=== PATIENT | female | born 1950 | race Caucasian/White ===

== ENCOUNTER 2017-10-13 23:53 | Observation (INO) | payer MEDICARE, BC ==
[~2017-10-13] VITALS: Ht 160 cm; Wt 72.6 kg
[~2017-10-13 23:53] MED LIST: ATARAX25 MG ORAL; ATORVASTATIN CA20 MG ORAL; CATAPRES0.1 MG ORAL; COZAAR50 MG ORAL; NORCO 5-325 TA1 EACH ORAL; PRILOSEC OTC20 MG PO; TYLENOL ARTHRI650 M1 PO; ZOLPIDEM TARTRA10 MG ORAL
[2017-10-14] MEDS ORDERED: Metoprolol 5mg/5ml Inj IVP ONE (00:45)
[2017-10-14 00:54] LABS: BASOPHILS % (AUTO) 1.1 % (0.0-2.0); EOSINOPHILS % (AUTO) 0.7 % (0.0-3.0); HEMATOCRIT 39.4 % (37.0-47.0); HEMOGLOBIN 13.6 G/DL (12.0-16.0); LYMPHOCYTES % (AUTO) 30.6 % (20.0-45.0); MEAN CORPUSCULAR VOLUME 86 FL (80-99); MONOCYTES % (AUTO) 8.5 % (1.0-10.0); NEUTROPHILS % (AUTO) 59.1 % (45.0-75.0); PLATELET COUNT 341 K/UL (150-450); RED CELL DISTRIBUTION WIDTH 13.4 % (11.6-14.8); WHITE BLOOD COUNT 9.5 K/UL (4.8-10.8)
[2017-10-14 01:15] LABS: ANION GAP 11 mmol/L (5-15); BLOOD UREA NITROGEN 17 mg/dL (7-18); CALCIUM 9.2 MG/DL (8.5-10.1); CARBON DIOXIDE 23 MMOL/L (21-32); CHLORIDE 103 MMOL/L (98-107); CREATININE 1.2 MG/DL (0.55-1.30); POTASSIUM 3.8 MMOL/L (3.5-5.1); SODIUM 137 MMOL/L (136-145)
[2017-10-14] MEDS ORDERED: MULTIVITAMINS1 EAC2 ORAL (01:21)
[2017-10-14] MEDS ORDERED: TACROLIMUS1 MG PO (01:21)
[2017-10-14] MEDS ORDERED: AMBIEN5 MG ORAL (01:21)
[2017-10-14] MEDS ORDERED: IMODIUM MULTI-1 EACH PO (01:21)
[2017-10-14] MEDS ORDERED: METOPROLOL TAR100 M1 ORAL (01:21)
[2017-10-14] MEDS ORDERED: evista (01:21)
[2017-10-14] MEDS ORDERED: CRINONE1.45 G1 TOPIC (01:21)
[2017-10-14] MEDS ORDERED: HYDROXYZINE (01:21)
[2017-10-14] MEDS ORDERED: ASPIR 8181 MG ORAL (01:21)
[2017-10-14] MEDS ORDERED: PREDNISONE2.5 MG ORAL (01:21)
[2017-10-14] MEDS ORDERED: CRESTOR10 M2 ORAL (01:21)
[2017-10-14] MEDS ORDERED: ADALAT10 MG ORAL (01:21)
[2017-10-14] MEDS ORDERED: COQ-10100 M1 PO (01:21)
[2017-10-14] MEDS ORDERED: PANTOPRAZOLE SO40 MG ORAL (01:21)
[2017-10-14] MEDS ORDERED: METOPROLOL TAR100 MG ORAL (01:21)
[2017-10-14 01:32] LABS: ALANINE AMINOTRANSFERASE 17 U/L (12-78); ALBUMIN 3.8 G/DL (3.4-5.0); ALKALINE PHOSPHATASE 50 U/L (46-116); ASPARTATE AMINO TRANSFERASE 18 U/L (15-37); BILIRUBIN,TOTAL 0.4 MG/DL (0.2-1.0); CKMB 0.9 NG/ML (0.0-3.6); CREATINE KINASE 71 U/L (26-308)
[2017-10-14 01:38] VITALS: BP 142/76
[2017-10-14] MEDS ORDERED: Sodium Chloride 500ML 500 ML IV ONE (02:15)
--- NOTE | 2017-10-14 02:37 | Emergency Room Report ---
History of Present Illness General Chief Complaint: Chest Pain Source: Patient, EMS Present Illness HPI Patient is a 67-year-old female brought in by EMS after increased chest discomfort. Patient had been given aspirin the in the field as well as nitroglycerin 2 with resolution of her chest pain. Patient had onset during moderate exertion. The pain was resolved after approximately one hour. The patient prior history of renal transplant and had been taking blood pressure medications. Allergies: Coded Allergies: IODINE (Verified Allergy, Unknown, 10/13/17) PENICILLINS (Verified Allergy, Unknown, 03/07/14) Patient History Past Medical History: see triage record Last Menstrual Period: none Reviewed Nursing Documentation: PMH: Agreed; PSxH: Agreed Nursing Documentation-PMH Hx Hypertension: Yes Hx Asthma: Yes Review of Systems All Other Systems: negative except mentioned in HPI Physical Exam Vital Signs Date Time Temp Pulse Resp B/P (MAP) Pulse Ox O2 Delivery O2 Flow Rate FiO2 10/13/17 23:56 98.2 112 18 134/88 94 Room Air 98.2 Sp02 EP Interpretation: reviewed, normal General Appearance: normal inspection, well appearing, no apparent distress, alert, GCS 15, non-toxic, Chronically Ill Head: atraumatic ENT: normal ENT inspection, hearing grossly normal, normal voice Neck: normal inspection, full range of motion, supple, no bony tend Respiratory: normal inspection, lungs clear, normal breath sounds, no respiratory distress, no retraction, no wheezing Cardiovascular #1: regular rate, rhythm, no edema Gastrointestinal: normal inspection, normal bowel sounds, non tender, soft, no guarding, no hernia Genitourinary: no CVA tenderness Musculoskeletal: normal inspection, back normal, normal range of motion Neurologic: normal inspection, alert, oriented x3, responsive, rail track layer III-XII nml as tested, motor strength/tone normal, speech normal Psychiatric: normal inspection, judgement/insight normal, mood/affect normal Skin: normal inspection, normal color, no rash Medical Decision Making Diagnostic Impression: Primary Impression: Chest pain Additional Impressions: ACS (acute coronary syndrome) Renal transplant recipient Hypertension ER Course Patient presented for chest pain.Differential diagnosis included but was not limited to acute coronary syndrome, pulmonary embolism, pneumonia, aortic dissection, shingles, pneumothorax, aortic dissection, esophageal rupture, pericarditis. Because of complexity of patient's case laboratory testing and imaging studies were ordered. The laboratory testing showed initially normal troponin. EKG interpreted by me showed normal sinus rhythm without acute ST or T wave changes. The patient was noted to be pain-free while in emergency department and was given metoprolol IV as well as the Prograf for the renal transplant. The patient was noted to have slightly elevated creatinine compared to her baseline. The patient was given hydroxyzine for her interstitial cystitis. The reported the patient had recently been started on Norvasc. Dr. Yon Landa was contacted for inpatient management due to the previous admission Labs Test 10/14/17 00:30 White Blood Count 9.5 K/UL (4.8-10.8) Red Blood Count 4.60 M/UL (4.20-5.40) Hemoglobin 13.6 G/DL (12.0-16.0) Hematocrit 39.4 % (37.0-47.0) Mean Corpuscular Volume 86 FL (80-99) Mean Corpuscular Hemoglobin 29.7 PG (27.0-31.0) Mean Corpuscular Hemoglobin Concent 34.6 G/DL (32.0-36.0) Red Cell Distribution Width 13.4 % (11.6-14.8) Platelet Count 341 K/UL (150-450) Mean Platelet Volume 5.6 FL (6.5-10.1) Neutrophils (%) (Auto) 59.1 % (45.0-75.0) Lymphocytes (%) (Auto) 30.6 % (20.0-45.0) Monocytes (%) (Auto) 8.5 % (1.0-10.0) Eosinophils (%) (Auto) 0.7 % (0.0-3.0) Basophils (%) (Auto) 1.1 % (0.0-2.0) Prothrombin Time 10.4 SEC (9.30-11.50) Prothromb Time International Ratio 1.0 (0.9-1.1) Activated Partial Thromboplast Time 27 SEC (23-33) Sodium Level 137 MMOL/L (136-145) Potassium Level 3.8 MMOL/L (3.5-5.1) Chloride Level 103 MMOL/L (98-107) Carbon Dioxide Level 23 MMOL/L (21-32) Anion Gap 11 mmol/L (5-15) Blood Urea Nitrogen 17 mg/dL (7-18) Creatinine 1.2 MG/DL (0.55-1.30) Estimat Glomerular Filtration Rate 44.8 mL/min (>60) Glucose Level 121 MG/DL (74-106) Calcium Level 9.2 MG/DL (8.5-10.1) Total Bilirubin 0.4 MG/DL (0.2-1.0) Aspartate Amino Transf (AST/SGOT) 18 U/L (15-37) Alanine Aminotransferase (ALT/SGPT) 17 U/L (12-78) Alkaline Phosphatase 50 U/L (46-116) Total Creatine Kinase 71 U/L (26-308) Creatine Kinase MB 0.9 NG/ML (0.0-3.6) Creatine Kinase MB Relative Index 1.2 Troponin I 0.000 ng/mL (0.000-0.056) Pro-B-Type Natriuretic Peptide 401 pg/mL (0-125) Total Protein 7.5 G/DL (6.4-8.2) Albumin 3.8 G/DL (3.4-5.0) Globulin 3.7 g/dL Albumin/Globulin Ratio 1.0 (1.0-2.7) Lipase 430 U/L (73-393) EKG Diagnostic Results Rate: normal Rhythm: NSR ST Segments: no acute changes Last Vital Signs Date Time Temp Pulse Resp B/P (MAP) Pulse Ox O2 Delivery O2 Flow Rate FiO2 10/14/17 01:38 98.2 75 19 142/76 99 Room Air 98.2 Status: unchanged Disposition: XFER [facility] Condition: Serious Referrals: Yon Landa MD (PCP) Drew Olson MD Oct 14, 2017 02:37
[2017-10-14] MEDS ORDERED: HydrOXYzine tab 25mg tab ORAL ONE (02:45)
[2017-10-14 03:12] VITALS: BP 146/66
[2017-10-14 03:29] LABS: APPEARANCE,URINE CLEAR; BILIRUBIN, URINE NEGATIVE (NEGATIVE); COLOR,URINE PALE YELLOW; GLUCOSE, URINE (UA) NEGATIVE (NEGATIVE); KETONES,URINE NEGATIVE (NEGATIVE); LEUKOCYTE ESTERASE ,URINE 1+ (NEGATIVE); NITRITE,URINE NEGATIVE (NEGATIVE); PH,URINE 6 (4.5-8.0); PROTEIN,URINE NEGATIVE (NEGATIVE); UROBILINOGEN,URINE NORMAL MG/DL (0.0-1.0)
[2017-10-14 04:00] VITALS: BP 146/66
[2017-10-14] MEDS ORDERED: Zolpidem 5mg tab ORAL PRN (04:15)
[2017-10-14] MEDS ORDERED: Loperamide 2mg cap ORAL PRN (05:00)
[2017-10-14] MEDS ORDERED: Norco 5mg/325mg tab ORAL PRN (06:44)
[2017-10-14 08:00] VITALS: BP 152/85
[2017-10-14] MEDS ORDERED: Aspirin EC 81mg tab ORAL SCH (09:00)
[2017-10-14] MEDS ORDERED: NIFEdipine 10mg cap ORAL SCH (09:00)
[2017-10-14] MEDS: Metoprolol 25mg tab ORAL SCH ×2 (09:05→09:10)
[2017-10-14 12:00] VITALS: BP 146/75
--- NOTE | 2017-10-14 12:29 | Diagnostic Imaging Report ---
Indication: Chest pain Comparison: 11/03/2012 A single view chest radiograph was obtained. Findings: Left hemidiaphragm is elevated. There is mild left basal atelectasis. Lungs are clear otherwise. Heart size is normal. The bones are osteopenic. IMPRESSION: Left basal atelectasis and volume loss
--- NOTE | 2017-10-14 13:28 | Cardiology Progress Note ---
Assessment/Plan Assessment/Plan full note dicateed chronci abn ekg cp coranry artery calcification s/ renal tx repeat echo home if neg [id number] Objective Last 24 Hour Vital Signs Date Time Temp Pulse Resp B/P (MAP) Pulse Ox O2 Delivery O2 Flow Rate FiO2 10/14/17 08:00 97.5 89 21 152/85 95 Room Air 97.5 10/14/17 04:00 98.1 92 22 146/66 96 Room Air 98.1 10/14/17 04:00 92 10/14/17 03:12 98.2 81 19 146/66 99 Room Air 98.2 10/14/17 03:10 98.2 75 19 142/76 99 Room Air 98.2 10/14/17 01:38 98.2 75 19 142/76 99 Room Air 98.2 10/14/17 01:35 102 140/66 10/14/17 00:36 112 18 Room Air 10/13/17 23:56 98.2 112 18 134/88 94 Room Air 98.2 Intake and Output 10/13/17 10/14/17 19:00 07:00 Intake Total 120 ml Balance 120 ml Intake Oral 120 ml # Voids 1 Laboratory Tests Test 10/14/17 00:30 10/14/17 03:00 10/14/17 11:06 White Blood Count 9.5 K/UL (4.8-10.8) Red Blood Count 4.60 M/UL (4.20-5.40) Hemoglobin 13.6 G/DL (12.0-16.0) Hematocrit 39.4 % (37.0-47.0) Mean Corpuscular Volume 86 FL (80-99) Mean Corpuscular Hemoglobin 29.7 PG (27.0-31.0) Mean Corpuscular Hemoglobin Concent 34.6 G/DL (32.0-36.0) Red Cell Distribution Width 13.4 % (11.6-14.8) Platelet Count 341 K/UL (150-450) Mean Platelet Volume 5.6 FL (6.5-10.1) L Neutrophils (%) (Auto) 59.1 % (45.0-75.0) Lymphocytes (%) (Auto) 30.6 % (20.0-45.0) Monocytes (%) (Auto) 8.5 % (1.0-10.0) Eosinophils (%) (Auto) 0.7 % (0.0-3.0) Basophils (%) (Auto) 1.1 % (0.0-2.0) Prothrombin Time 10.4 SEC (9.30-11.50) Prothromb Time International Ratio 1.0 (0.9-1.1) Activated Partial Thromboplast Time 27 SEC (23-33) Sodium Level 137 MMOL/L (136-145) Potassium Level 3.8 MMOL/L (3.5-5.1) Chloride Level 103 MMOL/L (98-107) Carbon Dioxide Level 23 MMOL/L (21-32) Anion Gap 11 mmol/L (5-15) Blood Urea Nitrogen 17 mg/dL (7-18) Creatinine 1.2 MG/DL (0.55-1.30) Estimat Glomerular Filtration Rate 44.8 mL/min (>60) Glucose Level 121 MG/DL (74-106) H Calcium Level 9.2 MG/DL (8.5-10.1) Total Bilirubin 0.4 MG/DL (0.2-1.0) Aspartate Amino Transf (AST/SGOT) 18 U/L (15-37) Alanine Aminotransferase (ALT/SGPT) 17 U/L (12-78) Alkaline Phosphatase 50 U/L (46-116) Total Creatine Kinase 71 U/L (26-308) Creatine Kinase MB 0.9 NG/ML (0.0-3.6) Creatine Kinase MB Relative Index 1.2 Troponin I 0.000 ng/mL (0.000-0.056) 0.008 ng/mL (0.000-0.056) 0.008 ng/mL (0.000-0.056) Pro-B-Type Natriuretic Peptide 401 pg/mL (0-125) H Total Protein 7.5 G/DL (6.4-8.2) Albumin 3.8 G/DL (3.4-5.0) Globulin 3.7 g/dL Albumin/Globulin Ratio 1.0 (1.0-2.7) Lipase 430 U/L (73-393) H Urine Color Pale yellow Urine Appearance Clear Urine pH 6 (4.5-8.0) Urine Specific [place] 1.010 (1.005-1.035) Urine Protein Negative (NEGATIVE) Urine Glucose (UA) Negative (NEGATIVE) Urine Ketones Negative (NEGATIVE) Urine Occult Blood Negative (NEGATIVE) Urine Nitrite Negative (NEGATIVE) Urine Bilirubin Negative (NEGATIVE) Urine Urobilinogen Normal MG/DL (0.0-1.0) Urine Leukocyte Esterase 1+ (NEGATIVE) H Urine RBC 0-2 /HPF (0 - 2) Urine WBC 15-20 /HPF (0 - 2) H Urine Squamous Epithelial Cells Few /LPF (NONE/OCC) Urine Bacteria Few /HPF (NONE) Yon Ladna MD Oct 14, 2017 13:28
[2017-10-14 16:00] VITALS: BP 157/81
--- NOTE | 2017-10-14 18:49 | Cardiology Report ---
APPROVED REPORT EXAM: Two-dimensional and M-mode echocardiogram with Doppler and color Doppler. INDICATION Chest Pain M-Mode DIMENSIONS IVSd1.6 (0.7-1.1cm)Left Atrium (MM)3.4 (1.6-4.0cm) LVDd4.2 (3.5-5.6cm)Aortic Root3.2 (2.0-3.7cm) PWd0.8 (0.7-1.1cm)Aortic Cusp Exc.1.5 (1.5-2.0cm) IVSs2.2 cm LVDs2.7 (2.5-4.0cm) PWs0.4 cm Technically difficult study due to poor acoustic window and pts breathing. Normal left ventricular chamber size, hyperdynamic systolic function and wall motion to extent visualized. Left ventricular ejection fraction estimated to be 70-75 %. Study quality precludes accurate assessment of regional wall motion. Moderate left ventricular hypertrophy. Anterior Echo-free space, may be due to pericardial fat or effusion. All other cardiac chamber sizes are within normal limits. Focal aortic valve sclerosis with adequate cusp excursion. Thickened mitral valve leaflets with normal excursion. Mitral annulus and aortic root calcification. Pulmonic valve not well visualized. Normal tricuspid valve structure. IVC at normal size with physiologic collapse. A color flow and spectral Doppler study was performed and revealed: Trace aortic regurgitation. Pre-aortic valve / LVOT Peak gradient of 33 mm Hg and a mean of 16 mmHg with late peaking signal suggestive of dynamic obstruction. Mild mitral regurgitation. Mitral diastolic velocities suggest reduced left ventricular relaxation c/w mild LV diastolic dysfunction. Trace tricuspid regurgitation. Tricuspid systolic velocities suggests peak right ventricular systolic pressure of 22 mmHg.
[2017-10-14] MEDS ORDERED: NORVASC2.5 MG ORAL (18:57)
--- NOTE | 2017-10-15 00:30 | History and Physical Report ---
DATE OF ADMISSION: 10/14/2017 REASON FOR ADMISSION: Chest pain. HISTORY OF PRESENT ILLNESS: This is an elderly middle-aged female, who is known to me, who presented to the hospital with chest pain. she indicates she had some neck pain. Few days ago, she underwent an MRI. She was claustrophobic and afterwards when she finished the MRI, she was very agitated and anxious and blood pressure was elevated. She was observed for a while, improved, but not quite low enough. Contacted the primary care doctor, who recommended she takes some of the medication she had at home from prior left overs and that included Procardia 30 mg, not clear if that was a short or long acting Procardia. Nevertheless, after she took it, she started having some palpitations and last night started having some pressure sensation in the center of the chest radiating to both sides. This lasted few minutes, resolved, and came back again. Paramedics were summoned. The patient was given some nitroglycerin sublingually and eventually was brought to the emergency room. The duration of the pain approximately half hour. She has no longer had pain any further since that time. She does not have any PND or orthopnea. She uses one pillow. There is dyspnea on exertion that she noticed when her blood pressure was significantly elevated. There is no other pain or pressure or tightness. PAST MEDICAL HISTORY: Positive for history of hyperlipidemia, essential hypertension, interstitial cystitis, ? asthma, chronic renal insufficiency, status post renal transplant, abnormal electrocardiogram, coronary artery atherosclerosis, pulmonary nodules, and she has had a positive PPD on prior occasions. SOCIAL HISTORY: She quit smoking , drinks socially. No drugs. REVIEW OF SYSTEMS: GASTROINTESTINAL: She has had some constipation, which she blames on the Procardia. GENITOURINARY: Negative. PULMONARY: Some occasional coughing, not much occasionally with clear sputum. NEUROLOGICAL: She has numbness and tingling sensation in her right leg where she has been evaluated for possibility of neck related issues. PHYSICAL EXAMINATION: VITAL SIGNS: Her blood pressure is 134/88 to 152/85, heart rate 75 to 92, and temperature is 97.5 degrees. LABORATORY AND DIAGNOSTIC DATA: Her prior cardiac workup includes a myocardial perfusion imaging that was performed at [facility] back on 04/05/2017 showed no reversible fixed defect and ejection fraction of 81%. She has extensive coronary calcification of 448, 94 percentile on that scan. Laboratory values, white count 9.5, hemoglobin 13.6, and platelet count of 341. Sodium is 137, potassium 3.8, chloride 103, bicarbonate 28, BUN 17, creatinine 1.2, glucose of 121, and calcium is 9.2. Liver function tests are normal. ProBNP is only 401. Lipase of 430. Three sets of cardiac enzymes from midnight, last night until 11 o'clock this afternoon were negative. Her EKG shows T-wave inversions in leads II, III, aVF, V2, V3, V4, V5, and V6 and in direct comparison, have been present on her EKGs dating back to 02/2015. She did have x-ray of her chest that was performed last night and that showed basically relatively normal chest x-ray. Official reading of the radiologist showed left basal atelectasis and volume loss. ASSESSMENT AND PLAN: 1. Atypical chest pain. 2. Coronary disease by coronary artery calcification without any coronary intervention with negative ischemic evaluation in 03/2017. 3. Renal insufficiency, status post renal transplant. 4. History of hyperlipidemia. This patient was seen in cardiac consultation. The patient's description of chest pain is somewhat worrisome, however, despite the fact that she has had more than half hour chest pain, the cardiac enzymes are so far negative. I would propose performing an echocardiogram to assure that her LV function has remained normal and possibly if that is the case, the patient can be discharged home with follow up as outpatient with further testing as it becomes necessary. She has her last echocardiogram in 03/2017 showed ejection fraction of 70%-75%, left ventricular hypertrophy being documented, and mitral inflow suggestive of mild abnormal diastolic relaxation at that time. I will follow up on the patient based on the results of the testing and hope to discharge her later this evening. Yon Landa M.D. DR: CAM JOB#: [id number] CC:
[2017-10-15] MEDS ORDERED: HydrOXYzine tab 25mg tab ORAL SCH (09:00)
[2017-10-15] MEDS ORDERED: Metoprolol Tartrate 12.5mg TAB ORAL SCH (09:00)
--- NOTE | 2017-10-18 14:23 | Cardiology Report ---
APPROVED REPORT EKG Measurement Heart [id number] Normal sinus rhythm T wave abnormality, consider inferior ischemia T wave abnormality, consider anterolateral ischemia Abnormal ECG
--- NOTE | 2017-10-18 14:27 | Cardiology Report ---
APPROVED REPORT EKG Measurement Heart [id number] Sinus tachycardia Otherwise normal ECG
== END 2017-10-14 21:08 | disposition home or self-care (01) ==
LOC: EDBD 23:53 → EMR 10-14 00:10 → EDBEDREQ 10-14 01:50 → 2E 10-14 02:00 → EDBEDREQ 10-14 02:10 → 2E 10-14 11:54
DX: R07.9 Chest pain, unspecified (principal); I24.9 Acute ischemic heart disease, unspecified; I10 Essential (primary) hypertension; N30.10 Interstitial cystitis (chronic) without hematuria; E78.5 Hyperlipidemia, unspecified; Z87.891 Personal history of nicotine dependence; Z94.0 Kidney transplant status; Z88.0 Allergy status to penicillin; Z91.041 Radiographic dye allergy status; M85.80 Other specified disorders of bone density and structure, unspecified site
CPT/HCPCS: 36415; 71045; 80053; 81003; 82550; 82553; 83690; 83880; 84484; 85025; 85610; 85730; 87086; 87181; 93005; 93306; 99285; G0378 ×2; J7040; J7507

== ENCOUNTER 2017-10-23 11:13 | Emergency (ER) | payer MEDICARE, BC ==
[~2017-10-23] VITALS: Ht 160 cm; Wt 72.6 kg
[~2017-10-23 11:13] MED LIST changes: +ADALAT10 MG ORAL; +AMBIEN5 MG ORAL; +ASPIR 8181 MG ORAL; +COQ-10100 M1 PO; +CRESTOR10 M2 ORAL; +CRINONE1.45 G1 TOPIC; +HYDROXYZINE; +IMODIUM MULTI-1 EACH PO; +METOPROLOL TAR100 M1 ORAL; +METOPROLOL TAR100 MG ORAL; +MULTIVITAMINS1 EAC2 ORAL; +NORVASC2.5 MG ORAL; +PANTOPRAZOLE SO40 MG ORAL; +PREDNISONE2.5 MG ORAL; +TACROLIMUS1 MG PO; +evista
[2017-10-23 11:31] VITALS: BP 135/73
--- NOTE | 2017-10-23 11:58 | Emergency Room Report ---
History of Present Illness General Chief Complaint: General Complaint Source: Patient Present Illness HPI Patient presents with complaints of bruising to the left hand patient reports waking up this morning with the bruise Does not recall any obvious trauma She feels that the area is somewhat painful Denies any elbow pain denies any wrist pain Patient was in the hospital about 9 days ago had blood drawn from the left hand Does not recall having the IV in that area however Denies any chest pain or shortness of breath denies any anticoagulation Allergies: Coded Allergies: Lettuce (Verified Allergy, Mild, 10/14/17) [place] (Verified Allergy, Mild, 10/14/17) IODINE (Verified Allergy, Unknown, 10/13/17) PENICILLINS (Verified Allergy, Unknown, 03/07/14) Uncoded Allergies: ONIONS (Allergy, Unknown, 10/14/17) Patient History Past Medical History: see triage record Pertinent Family History: none Reviewed Nursing Documentation: PMH: Agreed; PSxH: Agreed Nursing Documentation-PMH Hx Cardiac Problems: Yes Hx Hypertension: Yes Hx Asthma: Yes Hx Cancer: No Hx Gastrointestinal Problems: No Hx Neurological Problems: No Review of Systems All Other Systems: negative except mentioned in HPI Physical Exam Vital Signs Date Time Temp Pulse Resp B/P (MAP) Pulse Ox O2 Delivery O2 Flow Rate FiO2 10/23/17 11:16 97.6 107 18 135/73 94 Room Air 97.5 Sp02 EP Interpretation: reviewed, normal General Appearance: no apparent distress, other - Mildly pale Head: normocephalic, atraumatic Eyes: bilateral eye PERRL, bilateral eye EOMI ENT: hearing grossly normal, normal pharynx, TMs + canals normal, uvula midline Neck: full range of motion, supple, no meningismus, no bony tend Respiratory: lungs clear, normal breath sounds, no rhonchi, no respiratory distress, no retraction, no accessory muscle use Cardiovascular #1: normal peripheral pulses, regular rate, rhythm, no edema, no gallop, no JVD, no murmur Gastrointestinal: normal bowel sounds, non tender, soft, no mass, no organomegaly, non-distended, no guarding, no hernia, no pulsatile mass, no rebound Genitourinary: no CVA tenderness Musculoskeletal: normal inspection Neurologic: oriented x3, responsive, stem lead former III-XII nml as tested, motor strength/ tone normal, sensory intact Psychiatric: mood/affect normal Skin: other - Approximately 2 x 2 centimeter hematoma with approximately half centimeter raised depth over the left dorsal hand. Does not appear expanding is not pulsatile fairly well demarcated Lymphatic: normal inspection, no adenopathy Medical Decision Making Diagnostic Impression: Primary Impression: Hematoma ER Course Patient has multiple comorbidities At this time given the recent instrumentation including blood draw Likely hematoma secondary to recent trauma Patient had x-ray obtained for further evaluation Ice has been placed and patient observed for approximately 2 hour The areas does not appear to be expanding and patient is stable for close outpatient follow-up, Patient's preassembler and inspector was also contacted notified of the findings and patient will have close follow-up with him Other X-Ray Diagnostic Results Other X-Ray Diagnostic Results : X-Ray ordered: Left hand # of Views/Limited Vs Complete: 2 View Indication: Pain EP Interpretation: Yes Interpretation: no dislocation, no fractures, other - Soft tissue swelling Impression: Other - Soft tissue swelling Last Vital Signs Date Time Temp Pulse Resp B/P (MAP) Pulse Ox O2 Delivery O2 Flow Rate FiO2 10/23/17 11:31 97.5 18 135/73 94 Room Air 97.5 10/23/17 11:16 107 Status: improved Disposition: HOME, SELF-CARE Condition: Improved Additional Instructions: Patient is provided with the discharge instructions notified to follow up with primary doctor in the next 2-3 days otherwise return to the er with any worsening symptoms. Please note that this report is being documented using nuMVC technology. This can lead to erroneous entry secondary to incorrect interpretation by the dictating instrument. Shawna Barrientos DO Oct 23, 2017 11:58
[2017-10-23 14:25] VITALS: BP 168/64
--- NOTE | 2017-10-24 12:02 | Diagnostic Imaging Report ---
Indication: Pain Technique: XRAY Hand Complete L Comparison: None Findings: Bones are demineralized. There is no acute fracture or dislocation. Anatomic alignment is preserved. No focal soft tissue defect is appreciated. No radiopaque foreign body seen. Impression: No evidence of acute fracture or dislocation.
== END 2017-10-23 14:25 | disposition home or self-care (01) ==
LOC: EMR 12:38
DX: S60.222A Contusion of left hand, initial encounter (principal); X58.XXXA Exposure to other specified factors, initial encounter; Y92.9 Unspecified place or not applicable; Z91.041 Radiographic dye allergy status; Z91.018 Allergy to other foods; Z88.0 Allergy status to penicillin; I10 Essential (primary) hypertension; J45.909 Unspecified asthma, uncomplicated
CPT/HCPCS: 99283